=== PATIENT | female | born 1940 | race Caucasian/White ===

== ENCOUNTER 2020-07-28 15:58 | Inpatient (IN) | payer MEDICARE, OTHER, SELFPAY ==
[2020-07-28] VITALS (19 sets, daily range): BP systolic 96–118; BP diastolic 41–92; PULSE 76–83; RESP 3–20; TEMP 36.8; O2SAT 95–100; BMI 39.8
--- NOTE | 2020-07-28 16:04 | HMH.EDGENADL ---
ED Disposition Clinical Impression: Hyperkalemia, TACHO (acute kidney injury), Hypercalcemia, Hyperglycemia, Abnormal head CT Altered mental status Qualifiers: Altered mental status type: somnolence Qualified Code(s): R40.0 - Somnolence Opiate overdose Qualifiers: Encounter type: initial encounter Injury intent: accidental or unintentional Qualified Code(s): T40.601A - Poisoning by unspecified narcotics, accidental (unintentional), initial encounter Respiratory failure with hypercapnia Qualifiers: Chronicity: acute on chronic Qualified Code(s): J96.22 - Acute and chronic respiratory failure with hypercapnia Disposition: Admitted As Inpatient Condition on Discharge: Critical - Critical Care Critical Care Time: Yes Attestation: On , the high probability of a clinically significant, sudden or life threatening deterioration of the following system(s) required my full and direct attention, intervention and personal management. The time I documented below is in addition to time spent performing reported procedures but includes the following listed in this critical care notation. Total Critical Care Time: 45 Vital system(s) involved:: Central Nervous System, Metabolic Failure, Renal Failure My critical care processes included: Assessment & monitoring of V/S, Initial and Re-exams, Data Review/Interpretation, Coordinating Care, Medication Orders and management, Documentation Medical Decision Making - Chapin Inquiry Pt receiving controlled substance: No Vital Signs: 07/28/20 15:58 07/28/20 16:25 07/28/20 16:42 Temperature 98.2 F Temperature Source Axillary Pulse Rate [Right] 82 80 82 Respiratory Rate 16 Blood Pressure [Right Arm] 113/81 109/55 L 113/81 Blood Pressure Mean [Right Arm] 91 73 91 Blood Pressure Source [Right Arm] Automatic Cuff Automatic Cuff Automatic Cuff Blood Pressure Position [Right Arm] Sitting Sitting Sitting 02 Sat by Pulse Oximetry 95 95 Oxygen Delivery Method Room Air Nasal Cannula Oxygen Flow Rate (LPM) 3 07/28/20 17:08 07/28/20 17:15 07/28/20 17:56 Temperature Temperature Source Pulse Rate [Right] 81 79 80 Respiratory Rate Blood Pressure [Right Arm] 104/57 L 104/47 L 109/68 L Blood Pressure Mean [Right Arm] 72 66 81 Blood Pressure Source [Right Arm] Automatic Cuff Automatic Cuff Automatic Cuff Blood Pressure Position [Right Arm] Sitting Sitting Sitting 02 Sat by Pulse Oximetry 100 98 98 Oxygen Delivery Method Nasal Cannula Nasal Cannula Nasal Cannula Oxygen Flow Rate (LPM) 3 4 3 07/28/20 18:00 07/28/20 18:31 07/28/20 19:05 Temperature Temperature Source Pulse Rate [Right] 79 79 82 Respiratory Rate Blood Pressure [Right Arm] 109/44 L 110/52 L 118/92 H Blood Pressure Mean [Right Arm] 65 71 100 Blood Pressure Source [Right Arm] Automatic Cuff Automatic Cuff Automatic Cuff Blood Pressure Position [Right Arm] Sitting Sitting Sitting 02 Sat by Pulse Oximetry 97 96 100 Oxygen Delivery Method BiPAP BiPAP BiPAP Oxygen Flow Rate (LPM) - Lab Data Lab results reviewed: Yes: I reviewed the patient's lab results. Lab Results 07/28/20 15:30: WBC 9.9, RBC 5.43 H, Hgb 14.9, Hct 50.8 H, MCV 93.6, MCH 27.5, MCHC 29.4 L, RDW 15.1, Plt Count 233, MPV 8.1, Neut % (Auto) 87.3 H, Lymph % (Auto) 9.2 L, Coffee % (Auto) 3.0, Eos % (Auto) 0.0 L, Baso % (Auto) 0.5, Neut # (Auto) 8.6 H, Lymph # (Auto) 0.9, Coffee # (Auto) 0.3, Eos # (Auto) 0.0, Baso # (Auto) 0.1, Total Counted 100, Neutrophils % (Manual) 82 H, Band Neutrophils % 1.0, Lymphocytes % (Manual) 13, Monocytes % (Manual) 3, Blast Cells % 1.0, Platelet Estimate Normal, RBC Morphology Normal, Hypochromasia 1+ 07/28/20 15:30: Sodium 139, Potassium 6.4 H*, Chloride 102, Carbon Dioxide 31 H, Anion Gap 12.4, BUN 60 H, Creatinine 2.00 H, Estimated GFR 24 L, Est GFR ( Amer) 29 L, Glucose 367 H, Calcium 12.4 H*, Total Bilirubin 0.4, AST 29, ALT 24, Alkaline Phosphatase 101, Troponin I 0.05 H, Total Protein 7.3, Albumin 3.8, Glob
--- NOTE | 2020-07-28 16:09 | CT_ITS ---
PROCEDURE: CT HEAD/BRAIN WO CON CLINICAL INDICATION: AMS Altered mental status, altered level of consciousness, confusion, disorientation COMPARISON: No exams were available for comparison TECHNIQUE: Axial images obtained. All CT scans at the facility use one or more dose reduction, viz: automated exposure control, ma/kV adjustment per patient size (including targeted exams where dose is matched to indication, i.e. head), or iterative reconstruction technique. FINDINGS: No midline shift, mass effect, intracranial hemorrhage, hydrocephalus, or extra-axial fluid collection is evident. There is generalized atrophy with hypoattenuation of the periventricular white matter consistent with microangiopathic changes.. Patient's head is tilted in the CT gantry. There is a 1.8 cm area of decreased attenuation in the medial aspect of right occipital lobe which could be due to an area of acute or subacute infarction. There is some decreased attenuation in the left occipital lobe. An area of acute infarction in this area is also consideration. Patient's head is tilted which somewhat accentuates areas of asymmetry. Non rotated exam without and with contrast may provide further evaluation. The calvarium has an unremarkable appearance. No mastoid effusion. No sinus air-fluid level. IMPRESSION: 1. Focal area of low density medial aspect right occipital lobe which may be due to an area of acute or subacute infarction versus a small space-occupying lesion. Possible areas of acute or subacute infarction in the left cerebellum and cerebellar peduncle region. MRI may provide further evaluation. Repeat exam without and with contrast without rotation may also be of further value. 2. There is generalized atrophy with hypoattenuation of the periventricular white matter consistent with microangiopathic changes. Dictated by: Vinny Muniz MD 07/28/2020 17:16 Vinny Muniz MD in OV 07/28/2020 17:16
--- NOTE | 2020-07-28 16:09 | XR_ITS ---
PROCEDURE: XR CHEST PORTABLE CLINICAL HISTORY: AMS Shortness of breath COMPARISON: No exams were available for comparison FINDINGS: The cardiomediastinal silhouette and pulmonary vascularity are within normal limits. The lungs are clear without infiltrates, suspicious nodules, or pleural effusions. No acute bony abnormalities. IMPRESSION: No acute findings. Dictated by: Vinny Muniz MD 07/28/2020 17:42 Vinny Muniz MD in OV 07/28/2020 17:42
--- NOTE | 2020-07-28 16:10 | ECG_ITS ---
APPROVED REPORT Exam: Resting ECG HR:195 bpm ECG Measurements Heart Rate 195 AXES QRSd 36 QRS 34 QT 186 T 169 QTc 335 Conclusion Unusual morphology with probable aflutter with variable condution. Multiple sttw changes = rate effect vs ischemia? Artifact limits interpretation Abnormal ECG Electronically signed by : Emre Yanes, 07/29/2020 06:28:29
--- NOTE | 2020-07-28 16:11 | PC.NURSE ---
Family at bedside
[2020-07-28 16:18] LABS: Basophils # 0.1 K/mm3 (0-0.2); Basophils % 0.5 % (0.1-2.0); Hematocrit 50.8 % (37.0-47.0); Hemoglobin 14.9 g/dL (12.2-16.2); Lymphocytes # 0.9 K/mm3 (0.7-4.5); Lymphocytes % 9.2 % (10-50); Mean Corpuscular HGB Conc 29.4 g/dL (31.8-35.4); Mean Corpuscular Hemoglobin 27.5 pg (27.0-31.2); Mean Corpuscular Volume 93.6 fl (81-99); Mean Platelet Volume 8.1 fl (7.4-10.4); Monocytes # 0.3 K/mm3 (0.1-1.0); Neutrophils # 8.6 K/mm3 (1.8-7.8); Neutrophils % 87.3 % (37.0-80.0); Platelet Count 233 K/mm3 (142-424); Red Blood Count 5.43 M/mm3 (4.20-5.40); Red Cell Distribution Width 15.1 % (11.5-17.5); White Blood Count 9.9 K/mm3 (4.8-10.8)
--- NOTE | 2020-07-28 16:22 | PC.NURSE ---
Attempted to do EKG but due to too much artifact it was unable to be read. Showed MD and he stated to repeat it once pt calmed down.
[2020-07-28 16:25] LABS: Chloride 102 mmol/L (98-107); Sodium 139 mmol/L (136-145)
[2020-07-28 16:27] LABS: MANUAL DIFFERENTIAL MANUAL DIFFERENTIAL (MANUAL DIFF)
[2020-07-28 16:28] LABS: Alanine Aminotransferase 24 U/L (12-78); Albumin Level 3.8 g/dl (3.5-5.0); Albumin/Globulin Ratio 1.1 (1.1-1.8); Alkaline Phosphatase 101 U/L (38-126); Anion Gap 12.4 mEq/L (5-15); Aspartate Amino Transferase 29 U/L (14-36); Bilirubin,Total 0.4 mg/dl (0.2-1.3); Blood Urea Nitrogen 60 mg/dl (7-17); Carbon Dioxide 31 mmol/L (22.0-30.0); Estimated Glomerular Filt Rate 24 ml/min (>60); GFR (African American) 29 ML/MIN (>60); Globulin 3.5 g/dL (1.3-3.2); Total Protein,Serum 7.3 g/dl (6.3-8.2)
[2020-07-28 16:29] LABS: Glucose 367 mg/dl (74-100)
[2020-07-28 16:32] LABS: Calcium 12.4 mg/dl (8.4-10.2); Potassium 6.4 mmoL/L (3.5-5.1)
--- NOTE | 2020-07-28 16:33 | ECG_ITS ---
APPROVED REPORT Exam: Resting ECG HR:80 bpm ECG Measurements Heart Rate 80 AXES SC 160 P 69 QRSd 134 QRS 60 QT 398 T 46 QTc 459 Conclusion Sinus rhythm with fusion complexes Right bundle branch block Abnormal ECG Electronically signed by : Emre Yanes, 07/30/2020 19:30:43
[2020-07-28 16:41] LABS: Troponin I 0.05 ng/ml (0.00-0.034)
[2020-07-28 16:45] LABS: Coronavirus 19 IgG Antibody Positive (Negative)
[2020-07-28 16:46] LABS: Coronavirus 19 IgM Antibody Positive (Negative); Triiodothryronine (T3) Uptake 42 % (23.5-40.5)
[2020-07-28 16:47] LABS: Free Thyroxine Index 5.5 ug/dL (5.93-13.13); T4 (Thyroxine) 13.2 ug/dl (5.53-11.0)
--- NOTE | 2020-07-28 16:47 | PC.NURSE ---
Lab called to report positive Covid IGM, aware. Nasal swab ordered.
--- NOTE | 2020-07-28 16:48 | PC.NURSE ---
Pt to rad.
[2020-07-28 16:55] LABS: Hypochromasia 1+; Lymphocytes % 13 % (10-50); Monocytes % 3 % (2-9); Neutrophils % 82 % (42-76); Platelet Estimate Normal; RBC Morphology Normal; Total Cells Counted 100
[2020-07-28 17:00] LABS: Thyroid Stimulating Hormone 0.25 uIU/mL (0.465-4.68)
--- NOTE | 2020-07-28 17:07 | PC.NURSE ---
Pt returned from rad. Covid swab sent to lab
[2020-07-28 17:09] LABS: Adenovirus,PCR Not Detected (NotDetected); Bordetella Pertussis Not Detected (NotDetected); Chlamydophila Pneumoniae, PCR Not Detected (NotDetected); Coronavirus 229E Not Detected (NotDetected); Coronavirus NL63 Not Detected (NotDetected); Coronavirus OC43 Not Detected (NotDetected); Coronovirus HKU1,PCR Not Detected (NotDetected); Human Metapneumovirus Not Detected (NotDetected); Influenza A, PCR Not Detected (NotDetected); Influenza AH1, 2009 Not Detected (NotDetected); Influenza AH1, PCR Not Detected (NotDetected); Influenza AH3,PCR Not Detected (NotDetected); Influenza B, PCR Not Detected (NotDetected); Mycoplasma Pneumoniae, PCR Not Detected (NotDetected); Parainfluenza 1, PCR Not Detected (NotDetected); Parainfluenza 2, PCR Not Detected (NotDetected); Parainfluenza 3, PCR Not Detected (NotDetected); Parainfluenza 4, PCR Not Detected (NotDetected); Respiratory Syncytial Virus Not Detected (NotDetected); Rhinovirus/Enterovirus Not Detected (NotDetected)
--- NOTE | 2020-07-28 17:15 | PC.NURSE ---
RT at bedside
--- NOTE | 2020-07-28 17:16 | PC.NURSE ---
lab here drawing lactic and cultures
[2020-07-28 17:20] LABS: ABG Base Excess -2.8 mmol/L (-2.4-2.3); ABG HCO3 25.9 mmhg (22.0-26.0); ABG Oxygen Saturation 96 % (90-100); ABG PO2 92.4 mmhg (80-100); ABG TCO2 28.2 mmhg (23-27)
[2020-07-28 17:21] LABS: Allen's Test Y; Oxygen 3 %; Source R/R
[2020-07-28 17:22] LABS: ABG PH 7.16 mmol/L (7.35-7.45)
--- NOTE | 2020-07-28 17:56 | PC.NURSE ---
notified resp pt needed bipap. Decision made to place pt on bipap in the ED at this time
--- NOTE | 2020-07-28 18:06 | PC.NURSE ---
RT at bedside with bipap
--- NOTE | 2020-07-28 18:22 | PC.NURSE ---
pt was unable to swallow kayexalate. Enema given at this time.
[2020-07-28 18:35] LABS: Coronavirus 19, PCR Detected (NotDetected)
--- NOTE | 2020-07-28 18:35 | PC.NURSE ---
lab notified us that pt covid positive
[2020-07-28 19:18] LABS: Thyroid Stimulating Hormone 0.19 uIU/mL (0.465-4.68)
[2020-07-28 20:00] LABS: Troponin I 0.04 ng/ml (0.00-0.034)
[2020-07-28 23:24] LABS: Anion Gap 13.4 mEq/L (5-15); Blood Urea Nitrogen 63 mg/dl (7-17); Calcium 11.2 mg/dl (8.4-10.2); Carbon Dioxide 28 mmol/L (22.0-30.0); Chloride 106 mmol/L (98-107); Creatinine Clearance Estimated 41 mL/min (50-200); Estimated Glomerular Filt Rate 27 ml/min (>60); GFR (African American) 33 ML/MIN (>60); Glucose 344 mg/dl (74-100); Sodium 141 mmol/L (136-145)
[2020-07-28 23:25] LABS: Potassium 6.4 mmoL/L (3.5-5.1)
[2020-07-29] VITALS (17 sets, daily range): BP systolic 90–158; BP diastolic 47–78; PULSE 65–95; RESP 16–28; TEMP 36.2–36.8; O2SAT 91–98; BMI 42.7; BMI 42.5
[2020-07-29 00:32] LABS: Troponin I 0.03 ng/ml (0.00-0.034)
--- NOTE | 2020-07-29 00:55 | PC.NURSE ---
PT ARRIVED TO FLOOR VIA STRETCHER FROM ED AT 0115
[2020-07-29 01:57] LABS: Microscopic,Cath URINE MICROSCOPIC (MICROSCOPIC)
[2020-07-29 02:02] LABS: Blood, Urine/Cath 3+ (Negative); Color,Urine/Cath YELLOW (Yellow); Glucose,Urine/Cath (UA) Negative (Negative); Ketones,Urine/Cath TRACE (Negative); Leukocyte Esterase,Cath 2+ (Negative); Nitrate,Cath Negative (Negative); Protein,Urine/Cath 1+ (Negative); Specific Gravity, Urine/Cath >= 1.030 (1.005-1.030); Urobilinogen,Cath 0.2 EU/dl (0.2)
[2020-07-29 02:12] LABS: Bilirubin,Cath Negative (Negative)
[2020-07-29 02:13] LABS: Appearance,Urine/Cath Cloudy (Clear)
[2020-07-29 02:14] LABS: Bacteria,Urine/Cath 3+ /lpf
[2020-07-29 02:15] LABS: Amphetamine/Metha Screen,Urine Negative ng/ml (<1000); Benzodiazepines Screen,Urine Negative ng/ml (<200)
[2020-07-29 02:16] LABS: Barbiturates Screen,Urine Negative ng/ml (<200); Cannabinoid Screen,Urine Negative ng/ml (<50)
[2020-07-29 02:17] LABS: Cocaine Screen,Urine Negative ng/ml (<300)
[2020-07-29 02:18] LABS: Methadone Screen,Urine Negative ng/ml (<300)
[2020-07-29 02:19] LABS: Opiate Screen,Urine Negative ng/ml (<300); Phencyclidine Screen,Urine Negative ng/ml (<25)
--- NOTE | 2020-07-29 04:44 | PC.NURSE ---
Pt arrived to the floor from ER at 0115. Pt is A&O to person but does not follow commands at this time. Pt has been on bipap through the night. Sats in the high 90s. Lung sounds are diminished with some rhonchi in bases. Santizo was anchored upon arrival and UA was obtained. Skin assessment revealed an area of open skin excoriation and redness. pictures were obtained. Mepilex and barrier cream applied. Pt had a large liquid BM. Bowel sounds positive x4, abd soft and nontender. Umbilical hernia noted. Generalize edema in LE, nonpitting. VSS, call light in reach, no concerns at this time.
[2020-07-29 06:43] LABS: POC Glucose,Bedside 269 (70-110)
--- NOTE | 2020-07-29 08:05 | P.CONPHA_ITS ---
[facility] Pharmacy VTE Monitoring - Patient Demographics Admission date: 07/29/20 Report Date: 07/29/20 Time: 08:05 Allergies/Adverse Reactions: Patient Allergies Penicillins Allergy (Intermediate, Verified 07/28/20 16:50) Height: 1.63 m Weight: 113.001 kg Patient Problems: Current Active Problems Altered mental status (Acute) Hyperkalemia (Acute) TACHO (acute kidney injury) (Acute) Hypercalcemia (Acute) Hyperglycemia (Acute) Opiate overdose (Acute) Abnormal head CT (Acute) Respiratory failure with hypercapnia (Acute) - VTE Risk Labs: VTE Related Lab Results Hgb 14.9 g/dL (12.2-16.2) 07/28/20 15:30 Hct 50.8 % (37.0-47.0) H 07/28/20 15:30 Plt Count 233 K/mm3 (142-424) 07/28/20 15:30 BUN 63 mg/dl (7-17) H 07/28/20 22:15 Creatinine 1.80 mg/dl (0.52-1.04) H 07/28/20 22:15 Estimated Creat Clear 41 mL/min (50-200) 07/28/20 22:15 Clinical Trial Participant: No - Prophylaxis VTE Prophylaxis Ordered?: Yes Types of VTE Prophylaxis: TEDS Knee High Location of Applied Device: Not Applicable
--- NOTE | 2020-07-29 08:22 | PC.WOUNDNOTE ---
Wound Location: Coccyx, excoriated and some shearing
--- NOTE | 2020-07-29 09:25 | HMH.HP ---
*Admission Date: 07/29/20 *Chief complaint: Altered Mental Staus *History of present illness: 80-year-old female patient delivered to the emergency department per ambulance from [facility] for reports of unresponsiveness to verbal stimuli. This lady is a [facility] the [facility], arrived yesterday and had been awake, alert, and talkative. Patient is noted to be on oxycodone 7.5 mg 3 times a day. And does have a history of COPD, blood sugar was 300s during transport to the emergency department and patient was not verbally responsive in route Narcan given with immediate effect. Patient now speaking. Complaining of being cold. Shivering. Moving all 4 extremities. ED physician discussed her CT scan with son. He says that she was told in [place] that she probably had TIAs. He says that they did discuss hospice and the [place] and he is still open to that discussion. 5:45 PM: The patient's son who is her power of merchant patroller is now here. He gives further history. He states that she is from [place] and was in a [facility] there, just got moved to the [facility] here yesterday, he was unhappy with treatment in [place]. He says that she has chronic respiratory failure. She had to be sent to the hospital multiple times from the [facility] for acute on chronic respiratory failure, would become unresponsive, and had to be put on BiPAP. He says she would get better in 3 days or so and will be sent back, but she refused to keep her BiPAP on at the [facility]. He was frustrated with this and had her transferred here. She is DNR. He says he does not want her put on a ventilator. He would prefer to have her put on BiPAP. He says [facility] here was trying to get her settings on BiPAP from her [place] [facility] so that they could start her on BiPAP here, but that had not yet been accomplished. Therefore, she has not been on BiPAP since arrival. He says she has not been on it in 3 or 4 days (Per Dr. Montenegro). She was diagnosed with Covid July 07, 2020 and spent 14 days in a Covid unit. He says that she has been cleared from that. In the emergency department potassium was 6.4, BUN 63, creatinine 1.8 Urinalysis showed 2+ leukocyte esterase, 3+ bacteria, and negative nitrates She is on IV fluids for TACHO and Invanz for UTI XR CHEST PORTABLE FINDINGS: The cardiomediastinal silhouette and pulmonary vascularity are within normal limits. The lungs are clear without infiltrates, suspicious nodules, or pleural effusions. No acute bony abnormalities. IMPRESSION: No acute findings. Dictated by: Vinny Muniz MD 07/28/2020 17:42 CT HEAD/BRAIN WO CON FINDINGS: No midline shift, mass effect, intracranial hemorrhage, hydrocephalus, or extra-axial fluid collection is evident. There is generalized atrophy with hypoattenuation of the periventricular white matter consistent with microangiopathic changes.. Patient's head is tilted in the CT gantry. There is a 1.8 cm area of decreased attenuation in the medial aspect of right occipital lobe which could be due to an area of acute or subacute infarction. There is some decreased attenuation in the left occipital lobe. An area of acute infarction in this area is also consideration. Patient's head is tilted which somewhat accentuates areas of asymmetry. Non rotated exam without and with contrast may provide further evaluation. The calvarium has an unremarkable appearance. No mastoid effusion. No sinus air-fluid level. IMPRESSION: 1. Focal area of low density medial aspect right occipital lobe which may be due to an area of acute or subacute infarction versus a small space-occupying lesion. Possible areas of acute or subacute infarction in the left cerebellum and cerebellar peduncle region. MRI may provide further evaluation. Repeat exam without and with contrast without rotation may also be of further value. 2. There is general
--- NOTE | 2020-07-29 09:35 | SW/DCPLANNER ---
Addendum entered by [facility] 07/31/20 09:44: Winter with [facility] has stated that patient does NOT need a repeat COVID swab and can return today with [facility]. Addendum entered by [facility] 07/31/20 09:28: Tanesha with Hospice stated that they can admit this patient at [facility] today. Hospice will provide their own Trilogy machine at [facility]. I will follow up with Wendy regarding their Trilogy machine. I have also informed patients nurse (Emily) that Trilogy machine in patients room is to stay at [facility]. Tanesha has stated that she will follow up with me once Trilogy machine is set up at [facility] so patient can return. Tanesha with Hospice has also stated that nurse will need to do EMS DNR (I have informed patients nurse:Emily). Tanesha has also stated that she has spoke with family regarding strictly comfort care only. I have attempted to contact Winter with [facility] regarding: returning to [facility] today, will COVID swab be needed and admitting with Hospice. Winter did not answer but VM has been left. Addendum entered by [facility] 07/30/20 13:04: Tanesha with Hospice is currently reviewing patient information and evaluating patient at this time. Addendum entered by [facility] 07/30/20 10:37: I have spoke with patients family (son and daughter in law) regarding discharge plans. I have discussed option of returning to [facility] with Hospice Care. After lengthy discussion with family they have agreed to let Hospice review patient information and see if patient is a Hospice candidate. Patient information has been faxed to Mulu with [facility]. I will follow up with Mulu once patient information is reviewed. I will also relay information to Dr Lockhart/Akash. Addendum entered by [facility] 07/29/20 15:27: Wendy will deliver Trilogy machine with settings set appropriately. RT is agreeable to put machine on patient. Addendum entered by [facility] 07/29/20 15:13: Patient information and order has been faxed to [facility] for Trilogy machine. Wendy will deliver and set up in patients room today. I have informed RT staff along with Dr Keith/Ankit. Addendum entered by Yessica Chapin 07/29/20 11:09: Winter with [facility] has called back stating they CAN accept a Trilogy Machine now. Addendum entered by Yessica Chapin 07/29/20 10:48: Winter has stated they will take this patient back at time of discharge. Winter has also stated that this patient does not have bi pap at their facility and they can not accept Trilogy machine. Original Note: This patient currently resides at [facility]. I have spoke with Winter from [facility] and she has stated that patient is SNF level of care. I will continue to follow up with Winter until patient is medically stable for discharge.
[2020-07-29 11:49] LABS: POC Glucose,Bedside 251 (70-110)
--- NOTE | 2020-07-29 13:05 | HMH.PULMCON ---
*Admission Date: 07/29/20 *Reason for consult:: Hypercarbic respiratory failure *History of present illness: Patient altered not responding appropriately. Much of the history obtained from chart review. Ms. Gan is a 80-year-old female with unknown clear medical history at this point of time, recently transferred from [facility] to [place]. Patient appears to be her prior history of multiple episodes of hypercarbic respiratory failure and eventually placed on chronic BiPAP therapy. Patient presented to the ED with altered mentation and ABG on admission showed hypercarbic respiratory failure and patient was initiated on BiPAP. Patient CT had also abnormal with possible acute/subacute stroke along with space-occupying lesion. Ultimately was called for the management of patient's hypercarbic respiratory failure [facility] History Medical History: Reports:: Coronary Artery Disease, Diabetes Mellitus Type 2, Hyperlipidemia, Hypertension Denies:: Cancer *Have you ever received a pneumonia vaccine?: Yes *Have you received a flu vaccine this season?: Yes Other Medical History: Reports: Hypothyroidism - *Social History Smoking Status: Unknown if ever smoked Alcohol Intake: never Alcohol Intake Frequency:: other Substance Use Type: unknown, other *Occupational Status:: disabled Housing: fpc *Travel in the last 8 weeks: Inside the [place] Family Hx:: Unable to obtain ROS - Review of Systems Review of systems:: unable to obtain Unable to obtain as patient was altered Med Home Medications Medication Instructions Recorded Confirmed Type Atorvastatin Calcium [Lipitor 40mg 40 mg PO HS 07/28/20 07/28/20 History Tab] Cholecalciferol (Vitamin D3) 1,000 unit PO DAILY 07/28/20 07/28/20 History [Vitamin D3 1,000 Unit Cap] Donepezil HCl [Donepezil ODT 10mg] 10 mg PO HS 07/28/20 07/28/20 History Escitalopram Oxalate [Lexapro] 20 mg PO DAILY 07/28/20 07/28/20 History Famotidine [Pepcid] 20 mg PO BID 07/28/20 07/28/20 History Furosemide [Lasix 20mg tablet] 20 mg PO DAILY 07/28/20 07/28/20 History Levothyroxine Sodium 50 mcg PO DAILY 07/28/20 07/28/20 History [Levothyroxine 50mcg (0.05mg) Tab] Losartan Potassium [Cozaar 50mg 50 mg PO DAILY 07/28/20 07/28/20 History Tablets] Memantine HCl [Namenda 10mg 10 mg PO DAILY 07/28/20 07/28/20 History Tablet] Oxycodone HCl [Oxaydo 7.5mg Tab] 7.5 mg PO TID 07/28/20 07/28/20 History Pantoprazole Sodium [Protonix 40mg 40 mg PO DAILY 07/28/20 07/28/20 History tablet] Pentoxifylline 400 mg PO TID 07/28/20 07/28/20 History Potassium Chloride 40 meq PO DAILY 07/28/20 07/28/20 History Tamsulosin HCl [Flomax 0.4mg 0.4 mg PO HS 07/28/20 07/28/20 History capsule] carvediloL [Coreg 3.125mg Tablet] 3.125 mg PO BID 07/28/20 07/28/20 History dexAMETHasone [Dexamethasone] 0 mg PO DIRECTED 07/28/20 07/29/20 History Acetaminophen [Acetaminophen Extra 500 mg PO Q4HP PRN 07/29/20 07/29/20 History Strength] Lactulose [Lactulose 10gm/15ml 30 ml PO DAILYP PRN 07/29/20 07/29/20 History Oral Soln] levoFLOXacin [Levaquin 500mg 500 mg PO DAILY 5 Days #5 tab 07/31/20 Rx tab] Allergies Allergy/AdvReac Type Severity Reaction Status Date / Time Penicillins Allergy Intermediate Verified 07/28/20 16:50 Exam - Constitutional Comment:: Patient altered. Does not appear to be in any distress. - HENMT Exam HENTN: normocephalic, atraumatic - Eye Exam Eyes:: eyelids normal, normal conjunctiva - Neck Exam Neck:: normal visual inspection, thyroid normal - Respiratory Exam Comments: Patient altered, not responding appropriately. Bilateral coarse breath sounds with mild expiratory wheeze. - Cardiovascular Exam Cardiac:: S1, S2 - GI Exam GI:: soft, obese - Skin Exam Skin: warm, no rash - Neurological Exam Patient altered, not responding appropriately verbal stimuli. Responding to painful stimuli. - Extremities Exam
[2020-07-29 15:31] LABS: ABG Base Excess 1.2 mmol/L (-2.4-2.3); ABG HCO3 27.7 mmhg (22.0-26.0); ABG Oxygen Saturation 96 % (90-100); ABG PO2 85.5 mmhg (80-100); ABG TCO2 29.4 mmhg (23-27)
[2020-07-29 15:34] LABS: Allen's Test Patient Unable; Oxygen 35 %; Source Right Radial
[2020-07-29 15:37] LABS: ABG PCO2 57.8 mmhg (35.0-45.0)
--- NOTE | 2020-07-29 15:37 | PC.NURSE ---
notified dr teran of abg results ph 7.29 and pco2 57.8.
--- NOTE | 2020-07-29 17:15 | PC.NURSE ---
Pt placed on home Trilogy unit from [facility]. 5 LPM O2 bleed in. Pt tolerating well at this time, will continue to monitor.
--- NOTE | 2020-07-29 17:31 | PC.NURSE ---
PT HAS BEEN NONVERBAL THROUGHOUT SHIFT BUT RESPONDS TO PAIN. PT SEEMS TO BE MORE ALERT THIS AFTERNOON. HER EYES HAVE BEEN OPEN AND SHE IS MOVING AROUND. SHE HAS TOLERATED THE BIPAP WELL THROUGHOUT SHIFT AND JUST GOT SWITCHED OVER TO A TRIOLOGY MACHINE. CURRENTLY TOLERATING WELL. WILL CONTINUE TO MONITOR. RESPIRATIONS REGULAR AND UNLABORED. LUNG SOUNDS EXPIRATORY RHONCHI NOTED THROUGHOUT. SUBRAMANIAN CATHETER IN PLACE W YELLOW URINE DRAINING. NO KINKS NOTED. NO BM THUS FAR. PT HAS RECEIVED 2 ANTIBIOTICS THIS SHIFT AND TOLERATED WELL. BED ALARM ON TO PROMOTE SAFETY. REDNESS NOTED TO COCCYX. DRESSING IN PLACE. PT TURNED Q2 HOURS. PT HAS REMAINED ON TELE THROUGHOUT SHIFT. PT IS CURRENTLY AWAKE WITH CALL LIGHT WITHIN REACH. BED IN LOWEST POSITION. VSS. WILL CONTINUE TO MONITOR.
[2020-07-30] VITALS (10 sets, daily range): BP systolic 125–142; BP diastolic 64–88; PULSE 65–113; RESP 20–24; TEMP 36.1–37.1; O2SAT 91–97
[2020-07-30 01:55] LABS: POC Glucose,Bedside 194 (70-110)
[2020-07-30 01:55] LABS: POC Glucose,Bedside 150 (70-110)
--- NOTE | 2020-07-30 05:05 | PC.NURSE ---
Pt has been asleep for the majority of the shift. Alert to person only. No s/s of pain or discomfort. Pt unable to take PO medications. Pt is currently receiving O2 via Trilogy with sats. >90%. Telemetry reveals NSR. Generalized, non-pitting edema noted to BUE and BLE. Lung sounds reveal rhonchi bilaterally throughout. Pt has been turned/repositioned and provided oral care Q2H this shift. F/C is patent and draining clear, yellow urine at bedside to gravity. No BM thus far this shift. 20 G peripheral IV in the LT AC is patent and SL. VSS. Call light within reach. Will continue to monitor.
[2020-07-30 06:04] LABS: POC Glucose,Bedside 117 (70-110)
[2020-07-30 07:31] LABS: Basophils % 0.1 % (0.1-2.0); Hematocrit 35.3 % (37.0-47.0); Hemoglobin 11.4 g/dL (12.2-16.2); Lymphocytes # 0.6 K/mm3 (0.7-4.5); Lymphocytes % 2.6 % (10-50); Mean Corpuscular HGB Conc 32.4 g/dL (31.8-35.4); Mean Corpuscular Hemoglobin 31.5 pg (27.0-31.2); Mean Corpuscular Volume 97.1 fl (81-99); Mean Platelet Volume 10.4 fl (7.4-10.4); Monocytes # 0.8 K/mm3 (0.1-1.0); Monocytes % 3.6 % (1.7-9.3); Neutrophils # 20.7 K/mm3 (1.8-7.8); Neutrophils % 93.7 % (37.0-80.0); Platelet Count 465 K/mm3 (142-424); Red Blood Count 3.64 M/mm3 (4.20-5.40); Red Cell Distribution Width 15.3 % (11.5-17.5)
[2020-07-30 07:36] LABS: Albumin Level 2.9 g/dl (3.5-5.0); Aspartate Amino Transferase 27 U/L (14-36); Blood Urea Nitrogen 68 mg/dl (7-17); Carbon Dioxide 29 mmol/L (22.0-30.0); Creatinine Clearance Estimated 38 mL/min (50-200); Estimated Glomerular Filt Rate 60 ml/min (>60); GFR (African American) 73 ML/MIN (>60); Sodium 149 mmol/L (136-145)
[2020-07-30 07:53] LABS: Alanine Aminotransferase 18 U/L (12-78); Albumin/Globulin Ratio 0.8 (1.1-1.8); Alkaline Phosphatase 94 U/L (38-126); Bilirubin,Total 0.4 mg/dl (0.2-1.3); Chloride 116 mmol/L (98-107); Globulin 3.8 g/dL (1.3-3.2); Total Protein,Serum 6.7 g/dl (6.3-8.2)
[2020-07-30 07:55] LABS: Anion Gap 9.5 mEq/L (5-15); Glucose 153 mg/dl (74-100); Potassium 5.5 mmoL/L (3.5-5.1)
[2020-07-30 08:10] LABS: MANUAL DIFFERENTIAL MANUAL DIFFERENTIAL (MANUAL DIFF)
[2020-07-30 08:59] LABS: Calcium 9.3 mg/dl (8.4-10.2)
--- NOTE | 2020-07-30 09:04 | HMH.ACPN2 ---
Internal Medicine - PN: Subj *Date: 07/30/20 *Time: 09:04 Interval history: pt nonresponsive Exam Vital signs and Labs for Last 24 Hours: Temp Pulse Resp BP Pulse Ox 96.9 F L 113 H 22 141/68 H 96 07/30/20 08:00 07/30/20 08:00 07/30/20 08:00 07/30/20 08:00 07/30/20 08:00 Laboratory Results - last 24 hr 07/29/20 11:34: POC Glucose 251 H 07/29/20 13:11: Specimen Source Right radial, O2 % 35, ABG pH 7.30 L, ABG pCO2 57.8 H, ABG pO2 85.5, ABG HCO3 27.7 H, ABG Total CO2 29.4 H, ABG O2 Saturation 96, ABG Base Excess 1.2, Vinny Test Patient unable 07/29/20 15:46: POC Glucose 194 H 07/29/20 20:11: POC Glucose 150 H 07/30/20 05:00: Sodium 149 H, Potassium 5.5 H, Chloride 116 H, Carbon Dioxide 29, Anion Gap 9.5, BUN 68 H, Creatinine 0.90 D, Estimated Creat Clear 38, Estimated GFR 60, Est GFR ( Amer) 73 D, Glucose 153 H, Calcium 9.3 D, Total Bilirubin 0.4, AST 27, ALT 18, Alkaline Phosphatase 94, Total Protein 6.7, Albumin 2.9 L, Globulin 3.8 H, Albumin/Globulin Ratio 0.8 L 07/30/20 05:00: WBC 22.0 H* D, RBC 3.64 L D, Hgb 11.4 L, Hct 35.3 L, MCV 97.1, MCH 31.5 H, MCHC 32.4, RDW 15.3, Plt Count 465 H D, MPV 10.4, Neut % (Auto) 93.7 H, Lymph % (Auto) 2.6 L, [place] % (Auto) 3.6, Eos % (Auto) 0.0 L, Baso % (Auto) 0.1, Neut # (Auto) 20.7 H, Lymph # (Auto) 0.6 L, [place] # (Auto) 0.8, Eos # (Auto) 0.0, Baso # (Auto) 0.0 07/30/20 05:50: POC Glucose 117 H I & O for Last 24 hours: Intake & Output 07/27/20 07/28/20 07/29/20 07/30/20 11:59 11:59 11:59 11:59 Intake Total 1000 / 1000 150 / 150 Output Total 200 / 200 600 / 600 Balance 800 / 800 -450 / -450 Weight 249 lb 1.957 oz Microbiology Reports for the Last 24 Hours: Microbiology 07/29/20 01:40 Urine,Catheterized Urine Culture - Preliminary NO GROWTH AFTER 24 HOURS - Constitutional morbidly obese - *Routine HEENT Exam Head: Present: normocephalic Eye: Present: PERRL ENT: Present: mucous membranes moist - *Routine Neck Exam Present: supple. Absent: lymphadenopathy - *Routine Respiratory Exam Present: CTA bilaterally - *Routine Cardiovascular Exam Present: RRR - *Routine Abdominal Exam Present: soft, normoactive bowel sounds, obese. Absent: tenderness - *Routine Extremities Exam Present: normal capillary refill. Absent: cyanosis, clubbing, edema - *Routine Skin Exam Present: warm. Absent: rash - *Routine Neurological Exam unresponsive - Routine Psychiatric Exam Present: unable to assess Assessment and Plan (1) Altered mental status Status: Acute Qualifiers: Altered mental status type: somnolence Qualified Code(s): R40.0 - Somnolence Category: Medical Code(s): R41.82 - Altered mental status, unspecified (2) Hyperkalemia Status: Acute Category: Medical Code(s): E87.5 - Hyperkalemia (3) TACHO (acute kidney injury) Status: Acute Category: Medical Code(s): N17.9 - Acute kidney failure, unspecified (4) Hypercalcemia Status: Acute Category: Medical Code(s): E83.52 - Hypercalcemia (5) Hyperglycemia Status: Acute Category: Medical Code(s): R73.9 - Hyperglycemia, unspecified (6) Opiate overdose Status: Acute Qualifiers: Encounter type: initial encounter Injury intent: accidental or unintentional Qualified Code(s): T40.601A - Poisoning by unspecified narcotics, accidental (unintentional), initial encounter Category: Medical Code(s): T40.601A - Poisoning by unspecified narcotics, accidental (unintentional), initial encounter (7) Abnormal head CT Status: Acute Category: Medical Code(s): R93.0 - Abnormal findings on diagnostic imaging of skull and head, not elsewhere classified (8) Respiratory failure with hypercapnia Status: Acute Qualifiers: Chronicity: acute on chronic Qualified Code(s): J96.22 - Acute and chronic respiratory failure with hypercapnia Category: Medical Code(s): J96.92 - Respiratory failure,
[2020-07-30 09:11] LABS: Lymphocytes % 5 % (10-50); Monocytes % 3 % (2-9); Neutrophils % 92 % (42-76); Total Cells Counted 100
[2020-07-30 09:14] LABS: Platelet Estimate Moderate Increase; RBC Morphology Normal
[2020-07-30 11:28] LABS: POC Glucose,Bedside 146 (70-110)
--- NOTE | 2020-07-30 13:43 | HMH.PULMPN ---
Internal Medicine - PN: Subj *Date: 07/30/20 *Time: 13:43 Interval history: Patient respiratory status relatively remained stable since yesterday. Improvement in oxygenation. Patient changed to [place]. Continues to remain lethargic and altered Exam - Constitutional Comment:: Patient appears lethargic and altered. - HENMT Exam HENMT: normocephalic, atraumatic - Eye Exam Eyes:: eyelids normal, normal conjunctiva - Neck Exam Neck:: thyroid normal, no lymphadenopathy - Respiratory Exam Comments: Bilateral relatively clear percent except for basilar coarse breath sound. No audible wheeze heard. Patient on Trilogy - Cardiovascular Exam Cardiac:: S1, S2 - GI Exam GI:: soft, obese - Skin Exam Skin: warm - Neurological Exam Patient lethargic and altered, not responding appropriately to questions - Extremities Exam Extremities: no cyanosis, normal capillary refill, edema Assessment and Plan - Assessment and plan all Dx Assessment and Plan for all problems:: #Hypercarbic respiratory failure: #COVID-19 pneumonia: 80-year-old female with no known clear medical history presented to the hospital with hypercarbic respiratory failure with admission ABG showing showing a pH of 7.16 with a PCO2 of 74.0. Patient also found tested for COVID-19 pneumonia Patient initially was on BiPAP with 05/03 with repeat ABG showing improved hypercarbia but still showed evidence of retained PCO2 at 57.8, Patient BiPAP changed to trilogy, will follow with repeat blood gas. No evidence of hypoxia, PO2 85.5 blood gas yesterday. Saturating 95% today. Patient currently receiving ertapenem for possible UTI, urine culture showing negative rods. Hemodynamically stable. Renal function stable. Evidence of hyponatremia and hyperkalemia noted. Plan: -Repeat ABG to evaluate resolution of her hypercarbia. -Continue Trilogy -Continue remdesivir and dexamethasone for COVID-19 pneumonia -Consider obtaining records from her prior correction to get a clear medical history - Continue DuoNebs every 6 hours scheduled along with budesonide every 12 scheduled -Patient also needs outpatient follow-up with sleep clinic to evaluate for the possibility of sleep apnea contributing to her hypercarbia #Management of other medical conditions including electrolyte management and work-up for altered mentation as per primary team. #Thank you for involving pulmonary in this patient care. We will continue to follow.
[2020-07-30 14:55] LABS: ABG Base Excess 0.9 mmol/L (-2.4-2.3); ABG HCO3 26.6 mmhg (22.0-26.0); ABG Oxygen Saturation 95 % (90-100); ABG PCO2 49.8 mmhg (35.0-45.0); ABG PH 7.35 mmol/L (7.35-7.45); ABG PO2 73.7 mmhg (80-100); ABG TCO2 28.1 mmhg (23-27)
[2020-07-30 14:56] LABS: Oxygen 5L %; Source Right Radial
[2020-07-30 17:17] LABS: POC Glucose,Bedside 178 (70-110)
--- NOTE | 2020-07-30 20:22 | PC.NURSE ---
PATIENT WILL OPEN EYES WHEN CALLED BY HER NAME. THIS RN INSTRUCTED PATIENT TO LAY HER LEFT ARM STRAIGHT AND PATIENT WAS ABLE TO. THIS RN ASKED PATIENT IF HER NAME WAS AVALENE AND PATIENT MOTION YES. PATIENT CONTINUED TO STAY ON HER TRILOGY THROUGHOUT THIS RN SHIFT. PATIENT'S SON WAS AT BEDSIDE AND PATIENT OPENED HER EYES TO HIS VOICE. NO OTHER CONCERNS AT THIS TIME.
[2020-07-30 21:40] LABS: POC Glucose,Bedside 176 (70-110)
[2020-07-31] VITALS: BP 124/97; PULSE 102; PULSE 110; RESP 18; TEMP 36.6; O2SAT 98
--- NOTE | 2020-07-31 03:21 | PC.NURSE ---
Pt has been alert to name this shift. Pt has been a q2h turn. Pt continues to tolerate trilogy w/ o2 sats between 95-98%. No cough noted this shift. Inspiratory and expiratory rhonchi present t/o all lung omalley per auscultation. +1 pitting edema present in BLE and +2 nonpitting edema present in BUE. Pt is NSR and NSR w/ BBB on tele. Santizo cath remain patent and is draining clear, light eliceo urine per gravity. No other acute changes or complaints at this time.
[2020-07-31 04:00] VITALS: BP 123/53; PULSE 106; PULSE 90; RESP 22; TEMP 36.7; O2SAT 94
[2020-07-31 05:20] VITALS: BMI 42.0
[2020-07-31 06:26] LABS: Basophils % 0.1 % (0.1-2.0); Eosinophils % 0.1 % (0.1-12.0); Hematocrit 47.2 % (37.0-47.0); Hemoglobin 14.8 g/dL (12.2-16.2); Lymphocytes # 0.7 K/mm3 (0.7-4.5); Lymphocytes % 6.4 % (10-50); Mean Corpuscular HGB Conc 31.4 g/dL (31.8-35.4); Mean Corpuscular Hemoglobin 28.1 pg (27.0-31.2); Mean Corpuscular Volume 89.7 fl (81-99); Mean Platelet Volume 8.4 fl (7.4-10.4); Monocytes # 0.4 K/mm3 (0.1-1.0); Monocytes % 3.8 % (1.7-9.3); Neutrophils # 9.5 K/mm3 (1.8-7.8); Neutrophils % 89.6 % (37.0-80.0); Platelet Count 218 K/mm3 (142-424); Red Blood Count 5.26 M/mm3 (4.20-5.40); Red Cell Distribution Width 15.4 % (11.5-17.5); White Blood Count 10.6 K/mm3 (4.8-10.8)
[2020-07-31 06:30] LABS: Alanine Aminotransferase 21 U/L (12-78); Albumin Level 3.1 g/dl (3.5-5.0); Albumin/Globulin Ratio 0.9 (1.1-1.8); Alkaline Phosphatase 99 U/L (38-126); Anion Gap 11.7 mEq/L (5-15); Aspartate Amino Transferase 25 U/L (14-36); Bilirubin,Total 0.3 mg/dl (0.2-1.3); Blood Urea Nitrogen 59 mg/dl (7-17); Carbon Dioxide 28 mmol/L (22.0-30.0); Chloride 116 mmol/L (98-107); Creatinine Clearance Estimated 38 mL/min (50-200); Estimated Glomerular Filt Rate 60 ml/min (>60); GFR (African American) 73 ML/MIN (>60); Globulin 3.4 g/dL (1.3-3.2); Glucose 272 mg/dl (74-100); Potassium 3.7 mmoL/L (3.5-5.1); Total Protein,Serum 6.5 g/dl (6.3-8.2)
[2020-07-31 06:37] LABS: POC Glucose,Bedside 211 (70-110)
[2020-07-31 06:39] LABS: MANUAL DIFFERENTIAL MANUAL DIFFERENTIAL (MANUAL DIFF)
[2020-07-31 06:48] LABS: Sodium 152 mmol/L (136-145)
[2020-07-31 07:26] VITALS: PULSE 107; O2SAT 95
[2020-07-31 08:00] VITALS: BP 99/65; PULSE 104; PULSE 130; PULSE 50; RESP 16; TEMP 36.4; O2SAT 97
[2020-07-31 08:29] LABS: Calcium 11.6 mg/dl (8.4-10.2)
--- NOTE | 2020-07-31 08:58 | HMH.DCSUM ---
General - General Admission date:: 07/28/20 Discharge date: 07/31/20 HPI HPI: 80-year-old female patient delivered to the emergency department per ambulance from [facility] for reports of unresponsiveness to verbal stimuli. This lady is a new resident at the senior care, arrived yesterday and had been awake, alert, and talkative. Patient is noted to be on oxycodone 7.5 mg 3 times a day. And does have a history of COPD, blood sugar was 300s during transport to the emergency department and patient was not verbally responsive in route Narcan given with immediate effect. Patient now speaking. Complaining of being cold. Shivering. Moving all 4 extremities. ED physician discussed her CT scan with son. He says that she was told in [place] that she probably had TIAs. He says that they did discuss hospice and the [place] and he is still open to that discussion. 5:45 PM: The patient's son who is her power of workers compensation attorney is now here. He gives further history. He states that she is from [place] and was in a senior care there, just got moved to the senior care here yesterday, he was unhappy with treatment in [place]. He says that she has chronic respiratory failure. She had to be sent to the hospital multiple times from the senior care for acute on chronic respiratory failure, would become unresponsive, and had to be put on BiPAP. He says she would get better in 3 days or so and will be sent back, but she refused to keep her BiPAP on at the senior care. He was frustrated with this and had her transferred here. She is DNR. He says he does not want her put on a ventilator. He would prefer to have her put on BiPAP. He says [facility] here was trying to get her settings on BiPAP from her [place] senior care so that they could start her on BiPAP here, but that had not yet been accomplished. Therefore, she has not been on BiPAP since arrival. He says she has not been on it in 3 or 4 days (Per Dr. Montenegro). She was diagnosed with Covid July 07, 2020 and spent 14 days in a Covid unit. He says that she has been cleared from that. In the emergency department potassium was 6.4, BUN 63, creatinine 1.8 Urinalysis showed 2+ leukocyte esterase, 3+ bacteria, and negative nitrates She is on IV fluids for TACHO and Invanz for UTI XR CHEST PORTABLE FINDINGS: The cardiomediastinal silhouette and pulmonary vascularity are within normal limits. The lungs are clear without infiltrates, suspicious nodules, or pleural effusions. No acute bony abnormalities. IMPRESSION: No acute findings. Dictated by: Vinny Muniz MD 07/28/2020 17:42 CT HEAD/BRAIN WO CON FINDINGS: No midline shift, mass effect, intracranial hemorrhage, hydrocephalus, or extra-axial fluid collection is evident. There is generalized atrophy with hypoattenuation of the periventricular white matter consistent with microangiopathic changes.. Patient's head is tilted in the CT gantry. There is a 1.8 cm area of decreased attenuation in the medial aspect of right occipital lobe which could be due to an area of acute or subacute infarction. There is some decreased attenuation in the left occipital lobe. An area of acute infarction in this area is also consideration. Patient's head is tilted which somewhat accentuates areas of asymmetry. Non rotated exam without and with contrast may provide further evaluation. The calvarium has an unremarkable appearance. No mastoid effusion. No sinus air-fluid level. IMPRESSION: 1. Focal area of low density medial aspect right occipital lobe which may be due to an area of acute or subacute infarction versus a small space-occupying lesion. Possible areas of acute or subacute infarction in the left cerebellum and cerebellar peduncle region. MRI may provide further evaluation. Repeat exam without and with contrast without rotation may also be of further value. 2. There is generalize
--- NOTE | 2020-07-31 09:12 | XR_ITS ---
PROCEDURE: XR CHEST PORTABLE CLINICAL HISTORY: hypoxia Covid19 patient COMPARISON: CR XR CHEST PORTABLE from 07/28/2020 FINDINGS: The cardiomediastinal silhouette and pulmonary vascularity are within normal limits. There is patchy infiltrate developing in the right lower lobe. There is a tubular opacity overlying the heart border inferiorly on the right with multiple small metallic segmented densities within the tubular opacity and could be something upon or within the patient. No acute bony abnormalities. IMPRESSION: Developing right lower lobe pneumonia Dictated by: Vinny Muniz MD 07/31/2020 10:01 Vinny Muniz MD in OV 07/31/2020 10:01
[2020-07-31 09:23] LABS: Lymphocytes % 3 % (10-50); Monocytes % 2 % (2-9); Neutrophils % 95 % (42-76); Platelet Estimate Normal; RBC Morphology Normal; Total Cells Counted 100
[2020-07-31 11:56] LABS: POC Glucose,Bedside 234 (70-110)
[2020-07-31 12:00] VITALS: BP 128/82; PULSE 100; RESP 22; TEMP 35.8; O2SAT 97
--- NOTE | 2020-07-31 13:12 | HMH.PULMPN ---
Internal Medicine - PN: Subj *Date: 07/31/20 *Time: 13:12 Interval history: Patient respiratory status remained stable. Blood gas improved Exam - Constitutional Comment:: Patient appears more lethargic today only responding to painful stimuli. - HENMT Exam HENMT: normocephalic, atraumatic - Eye Exam Eyes:: normal conjunctiva - Neck Exam Neck:: thyroid normal - Respiratory Exam Comments: Bilateral clear breath sounds. No audible wheeze heard. - Cardiovascular Exam Cardiac:: S1, S2 - GI Exam GI:: soft, obese - Skin Exam Skin: warm - Neurological Exam Patient lethargic. Responding only to painful stimuli. Not responding to verbal stimuli. - Extremities Exam Extremities: no cyanosis, no clubbing, edema Assessment and Plan - Assessment and plan all Dx Assessment and Plan for all problems:: #Hypercarbic respiratory failure: #COVID-19 pneumonia: 80-year-old female with no known clear medical history presented to the hospital with hypercarbic respiratory failure with admission ABG showing showing a pH of 7.16 with a PCO2 of 74.0. Patient also found tested for COVID-19 pneumonia Patient initially was on BiPAP with 05/03 with repeat ABG showing improved hypercarbia but still showed evidence of retained PCO2 at 57.8, Patient BiPAP changed to trilogy, will follow with repeat blood gas and repeat blood gas showed improved hypercarbia with a PCO2 of 49.8 with a pH of 7.35. Patient currently receiving ertapenem for possible UTI, urine culture showing negative rods. Hemodynamically stable. Renal function stable. Chest x-ray from this morning showed persistent right lower lobe pulmonary infiltrate along with right lower lobe volume loss concern for atelectasis. Auscultation of bilateral clear breath sounds with no audible wheeze. Mentation worsened from yesterday patient only responding to painful stimuli today volume overload bilateral lower extremity edema noted. Plan: - Continue current trilogy settings, will follow patient outpatient with repeat gas to determine the need for changing. - Continue remdesivir and dexamethasone for COVID-19 pneumonia - Consider obtaining records from her prior intermediate to get a clear medical history - Continue DuoNebs every 6 hours scheduled along with budesonide every 12 scheduled -Patient also needs outpatient follow-up with sleep clinic to evaluate for the possibility of sleep apnea contributing to her hypercarbia #Management of other medical conditions including electrolyte management and work-up for altered mentation as per primary team. #Thank you for involving pulmonary in this patient care. We will continue to follow.
--- NOTE | 2020-07-31 13:28 | PC.NURSE ---
pt unable to cough or follow commands. pt on Trilogy at all times.
--- NOTE | 2020-07-31 17:21 | PC.NURSE ---
Late entry; notified primary RN at 0600 of critical NA
--- NOTE | 2020-07-31 18:21 | PC.NURSE ---
THIS RN PHONED MARTIN AND INFORMED HER THAT THIS PATIENT WAS NOT TAKING ANYTHING BY MOUTH. MARTIN RESPONDED, YES I KNOW. THIS RN PROVIDED D/C INSTRUCTIONS TO JAVY AT [facility]. PER JAVY, THIS RN IS TO REMOVE SUBRAMANIAN BEFORE LEAVING [facility]. THIS RN REMOVED SUBRAMANIAN. PATIENT TOLERATED WELL. THIS RN RECEIVED A PHONE CALL FROM JAVY AT [facility] STATING THAT PATIENT'S DAUGHTER IN LAW HAD PHONED AND STATED THAT PATIENT WAS TO HAVE IV ANTIBIOTICS. THIS RN STATED THAT SHE WAS UNAWARE OF IV ANTIBIOTICS AND IV HAD BEEN REMOVED. THIS RN RECEIVED A PHONE CALL FROM ROZ FROM [facility] INQUIRING IF THIS RN KNEW OF IV ANTIBIOTICS, THIS RN INFORMED HER THAT ON DISCHARGE PAPERS, IT STATES A PRESCRIPTION FOR PO MEDICATIONS. ROZ HAD REPEATED THE SAME QUESTION AND THIS RN PROVIDED THE SAME RESPONSE.
== END 2020-07-31 15:34 | DRG 177 ==
LOC: ER 17:54 → 2ND 22:03
PROVIDERS: Internal Medicine Pulmonary Disease; Nurse Practitioner Family; Admitting Provider Emergency Medicine; Emergency Provider Emergency Medicine; PCP Emergency Medicine; Visit Provider Emergency Medicine
DX: U07.1 COVID-19 (principal); J12.82 Pneumonia due to coronavirus disease 2019; J96.22 Acute and chronic respiratory failure with hypercapnia; I11.0 Hypertensive heart disease with heart failure; I50.9 Heart failure, unspecified; I25.10 Atherosclerotic heart disease of native coronary artery without angina pectoris; E11.9 Type 2 diabetes mellitus without complications; Z79.899 Other long term (current) drug therapy; Z88.0 Allergy status to penicillin
CPT/HCPCS: 70450; 71045; 80048; 80053; 80305; 81001; 82803; 82962; 83605; 84436; 84443; 84479; 84484; 85007; 85025; 86328; 87040; 87086; 87088; 87186; 87581; 87633; 87798; 93005; 94640; 94660; 94761; 96365; 99285; J1335; J2310; J2405; U0003